=== PATIENT | female | born 1960 | race Caucasian/White ===

== ENCOUNTER → 2023-01-27 14:36 | Outpatient (CLI) | payer OTHER, SELFPAY ==
--- NOTE | ~2023-01-27 | MR_ITS ---
EXAMINATION: MR lumbar spine wo con DATE: 01/27/2023 15:03 INDICATION: Lumbar radiculopathy. TECHNIQUE: Magnetic resonance imaging (MRI) of the lumbar spine was performed without intravenous con trast. Sequences included sagittal T2-weighted FSE, sagittal T2-weighted FS FSE, sagittal T1-weighted FSE, and axial T2-weighted FSE. COMPARISON: Lumbar spine MRI 06/23/2012 FINDINGS: Bone alignment is normal. T12 is a limbus vertebra. There is moderately decreased disc heig ht at T11-T12 and T12-L1, mildly decreased disc height at L3-L4 and L4-L5, and severely decreased dis c height at L5-S1. The distal spinal cord signal intensity is normal. The conus medullaris is at L1. The following disc levels are specifically discussed: L1-L2: The disc does not extend beyond the endplate margin. There is mild bilateral facet joint osteo arthritis. There is no neural foraminal stenosis. There is no central canal stenosis. L2-L3: The disc is bulging. There is moderate right and mild left facet joint osteoarthritis. There i s mild left neural foraminal stenosis. There is no central canal stenosis. L3-L4: The disc is bulging. There is moderate bilateral facet joint osteoarthritis. There is mild pamela ateral neural foraminal stenosis. There is mild central canal stenosis. L4-L5: The disc is bulging and has an annular fissure. There is severe bilateral facet joint osteoart hritis. There is moderate right and mild left neural foraminal stenosis. There is mild central canal stenosis. L5-S1: The disc is bulging and has an annular fissure. There is severe bilateral facet joint osteoart hritis. There is mild bilateral neural foraminal stenosis. There is mild central canal stenosis. IMPRESSION: 1. Severe lower lumbar spondylosis, worsened from 06/23/2012. Reviewed, dictated and finalized at location E. FIELD SERVICE TECHNICIAN
== END ==
PROVIDERS: PCP Anesthesiology Pain Medicine; Visit Provider Anesthesiology Pain Medicine
DX: M47.26 Other spondylosis with radiculopathy, lumbar region (principal)
CPT/HCPCS: 72148

== ENCOUNTER 2023-07-09 12:23 | Outpatient (CLI) | payer OTHER, SELFPAY ==
--- NOTE | 2023-07-09 12:32 | ECHO_ITS ---
Patient Info Name: Qiana Small Age: 62 years : 1960 Gender: Female Ht: 67 in Wt: 202 lbs BSA: 2.11 m2 HR: 90 bpm BP: 94 / 61 mmHg Technical Quality: Fair Exam Date: 07/09/2023 12:48 PM Exam Location: [facility] Patient Status: Outpatient Admit Date: 07/09/2023 Staff Ordering Physician: Maggie Raines PA-C [employer] Operator: Ranjit Ta RDCS Attending Provider: Maggie Raines PA-C Referring Physician: Olu BUSBY; Exam Type: CA echo doppler color flow Study Info Indications R55 - Syncope and collapse Complete two-dimensional, color flow and Doppler transthoracic echocardiogram is performed. Summary 1. Complete two-dimensional, color flow and Doppler transthoracic echocardiogram is performed. 2. Left ventricular chamber dimension is normal. 3. Left ventricular systolic function is normal, estimated at 55-60%. 4. The left ventricular diastolic function is grade I diastolic dysfunction. 5. E/e' 14 is mildly elevated. 6. Left atrial chamber dimension is mildly enlarged. 7. The mitral valve has mildly calcified leaflets. 8. There is trace tricuspid valve regurgitation. 9. No pulmonary hypertension, estimated pulmonary arterial systolic pressure is 19 mmHg. Left Ventricle E/e' 14 is mildly elevated. Left ventricular chamber dimension is normal. Left ventricular systolic function is normal, estimated at 55-60%. The left ventricular diastolic function is grade I diastolic dysfunction. Right Ventricle Right ventricular systolic function is normal and with normal TAPSE 1.8 cm. Right ventricular chamber dimension is normal. Left Atria Left atrial chamber dimension is mildly enlarged. Right Atria Right atrial chamber dimension is normal. Aortic Valve The aortic valve is trileaflet. There is no aortic valve stenosis. There is no aortic valve regurgitation. Pulmonic Valve There is no pulmonic regurgitation. Mitral Valve The mitral valve has mildly calcified leaflets. There is no mitral valve stenosis. There is no mitral valve regurgitation. Tricuspid Valve There is trace tricuspid valve regurgitation. No pulmonary hypertension, estimated pulmonary arterial systolic pressure is 19 mmHg. Pericardium/Pleural There is no pericardial effusion. Inferior Vena Cava Normal inferior vena cava with >50% collapse upon inspiration consistent with normal right atrial pressure, 5 mmHg. Aorta The aortic root size at the sinus of Valsalva is normal. Left Ventricular Outflow Tract Name Value Normal LVOT 2D LVOT Diameter 2.2 cm LVOT Doppler LVOT Peak Gradient 4 mmHg LVOT Mean Gradient 2 mmHg LVOT VTI 20 cm LVOT VTI/AV VTI Ratio 0.6 LVOT Stroke Volume 74 ml LVOT CO 5.9 l/min LVOT CI 2.8 l/min/m2 Pulmonic Valve Name Value Normal PV Doppler
== END 2023-07-09 12:24 | disposition home or self-care (01) ==
LOC: ANHCARD 12:24
PROVIDERS: PCP Physician Assistant Medical; Visit Provider Physician Assistant Medical
DX: R42 Dizziness and giddiness (principal); R55 Syncope and collapse; I51.7 Cardiomegaly
CPT/HCPCS: 93306

== ENCOUNTER 2024-06-12 14:03 | Outpatient (CLI) | payer OTHER, SELFPAY ==
--- NOTE | ~2024-06-12 | XR_ITS ---
AP and lateral views of the left hip Clinical history: Pain Findings: No acute fracture or dislocation is seen. Osseous alignment is anatomic. Left hip joint int act. Soft tissues are unremarkable. Impression: No significant abnormality is seen. Reviewed, dictated and finalized at location . Impression: No significant abnormality is seen.
== END 2024-06-12 14:04 | disposition home or self-care (01) ==
PROVIDERS: PCP Physician Assistant Medical; Visit Provider Nurse Practitioner Family
DX: M25.552 Pain in left hip (principal)
CPT/HCPCS: 73502

== ENCOUNTER 2024-06-19 09:07 | Outpatient (CLI) | payer OTHER, SELFPAY ==
--- NOTE | ~2024-06-19 | MR_ITS ---
MRI of the lumbar spine Clinical History: Radiculopathy Technique: Axial T2-weighted images, and sagittal T1-weighted, T2-weighted, and T2 fat-sat images wer e acquired. COMPARISON: 01/27/2023 Findings: No acute fracture or subluxation seen. Osseous alignment is unchanged from prior exam. No s uspicious bone marrow signal abnormality seen. At L1-L2 and L2-L3, there is no significant disc bulge or herniation. There are mild facet joint dege nerative changes at these levels. No spinal canal stenosis or neural foraminal narrowing at these lev els. At L3-L4, there is mild disc bulge with moderate facet arthropathy. There is mild central canal steno sis. There is moderate bilateral neural foraminal narrowing. At L4-L5, there is diffuse disc bulge with severe facet arthropathy, especially on the right side. No neil spinal canal stenosis. There is severe bilateral neural foraminal narrowing, right worse than left. At L5-S1, there is advanced degenerative disc narrowing. There is central disc protrusion with probab le underlying diffuse disc bulge. There is severe facet arthropathy, especially left side. No spinal canal stenosis. There is severe left neural foraminal narrowing and moderate to advanced right neural foraminal narrowing. Paravertebral soft tissues are unremarkable. Impression: Severe neural foraminal narrowing at L4-L5 and L5-S1, as detailed above. Moderate bilateral neural foraminal narrowing at L3-L4. Reviewed, dictated and finalized at [facility]. Impression: Severe neural foraminal narrowing at L4-L5 and L5-S1, as detailed above. Moderate bilateral neural foraminal narrowing at L3-L4.
== END 2024-06-19 09:08 | disposition home or self-care (01) ==
LOC: MICIMG 09:09
PROVIDERS: PCP Physician Assistant Medical; Visit Provider Nurse Practitioner Family
DX: M54.16 Radiculopathy, lumbar region (principal)
CPT/HCPCS: 72148